=== PATIENT | female | born 1980 | race Two or more races ===

== ENCOUNTER 2023-12-20 12:55 | Emergency (ER) | payer SELFPAY ==
[~2023-12-20] VITALS: Ht 157.5 cm; Wt 60.0 kg
[2023-12-20 13:04] VITALS: BP 136/84; PULSE 76; RESP 18; TEMP 98.4; O2SAT 100
== END 2023-12-20 13:30 | disposition left against medical advice (07) ==
LOC: ER 13:14
DX: F10.129 Alcohol abuse with intoxication, unspecified (principal); Y90.0 Blood alcohol level of less than 20 mg/100 ml
CPT/HCPCS: 99283

== ENCOUNTER 2024-04-05 19:48 | Emergency (ER) | payer SELFPAY ==
[~2024-04-05] VITALS: Ht 154.9 cm; Wt 50.0 kg
[2024-04-05 19:52] VITALS: BP 113/70; PULSE 95; RESP 14; O2SAT 97
== END 2024-04-05 21:03 | disposition left against medical advice (07) ==
LOC: ER 19:48
DX: S00.03XA Contusion of scalp, initial encounter (principal); F10.129 Alcohol abuse with intoxication, unspecified; E11.9 Type 2 diabetes mellitus without complications; X58.XXXA Exposure to other specified factors, initial encounter; Y93.89 Activity, other specified; Y92.89 Other specified places as the place of occurrence of the external cause; Y99.8 Other external cause status; Y90.9 Presence of alcohol in blood, level not specified
CPT/HCPCS: 82962; 99283

== ENCOUNTER 2024-07-27 10:12 | Emergency (ER) | payer SELFPAY ==
[~2024-07-27] VITALS: Ht 154.9 cm; Wt 50.0 kg
[2024-07-27] MEDS: SODIUM CHLORIDE 0.9% 1,000 ML IV ONE (10:45)
[2024-07-27 12:03] LABS: BASOPHILS % 0.6 % (0.0-2.0); DIFFERENTIAL COMMENT 0; EOSINOPHILS % 0.5 % (0.0-5.0); HEMATOCRIT. 35.9 % (36.0-48.0); HEMOGLOBIN. 11.6 g/dL (12.0-16.0); LYMPHOCYTES % 57.6 % (20.0-50.0); MEAN CORPUSCULAR HGB CONC 32.3 g/dL (31.0-37.0); MEAN CORPUSCULAR VOLUME 74.4 fL (81.0-99.0); MEAN PLATELET VOLUME 7.7 fl (7.4-10.4); MONOCYTES % 4.5 % (2.0-8.0); NEUTROPHILS % 36.8 % (40.0-76.0); PLATELET 266 x1000/uL (130-400); RED BLOOD CELL COUNT 4.82 mill/uL (4.2-5.4); RED CELL DISTRIBUTION WIDTH 21.7 % (11.6-14.6); WHITE BLOOD COUNT 3.4 x1000/uL (4.5-11.0)
[2024-07-27 12:10] LABS: CHLORIDE 103 mEq/L (98-107); POTASSIUM 4.1 mEq/L (3.5-5.1); SODIUM 140 mEq/L (136-145)
[2024-07-27 12:11] LABS: CALCIUM 9.1 mg/dL (8.7-10.4); CARBON DIOXIDE 24 mEq/L (21-32)
[2024-07-27 12:16] LABS: CREATININE 0.5 mg/dL (0.6-1.0); GLUCOSE 278 mg/dL (70-105); UREA NITROGEN BLOOD 6 mg/dL (9-23)
[2024-07-27 12:18] LABS: ACETAMINOPHEN < 2 ug/mL (10-30)
[2024-07-27 12:26] LABS: ETHANOL BLOOD 397 mg/dL (<10)
[2024-07-27 12:33] LABS: HCG SCREEN NEGATIVE
[2024-07-27] MEDS: HALOPERIDOL LACTATE 5MG/ML VIAL IM ONE (12:58)
[2024-07-27] MEDS: MIDAZOLAM HCL 2 MG/2 ML VIAL IM ONE (12:58)
[2024-07-27] MEDS: DIPHENHYDRAMINE 50MG/ML VIAL IM ONE (12:58)
[2024-07-27 14:25] LABS: BETA HYDROXYBUTYRATE 0.5 mMol/L (0.0-0.3)
[2024-07-27 15:56] VITALS: O2SAT 97
[2024-07-27 17:20] VITALS: BP 123/76; PULSE 75; RESP 16; TEMP 36.72516
== END 2024-07-27 17:24 | disposition home or self-care (01) ==
LOC: ER 10:47
DX: F10.129 Alcohol abuse with intoxication, unspecified (principal); D64.9 Anemia, unspecified; E11.9 Type 2 diabetes mellitus without complications; D72.819 Decreased white blood cell count, unspecified; R45.1 Restlessness and agitation; Z98.890 Other specified postprocedural states; Y90.9 Presence of alcohol in blood, level not specified
CPT/HCPCS: 80048; 80307; 82010; 80329; 80320; 84703; 85025; 36415; 96360; 96361; 96372; 99285; J1200; J1630; J2250; J7030; G0480